=== PATIENT | male | born 1990 | race Hispanic/Latino ===

== ENCOUNTER → 2019-01-07 | Day surgery (SDC) | payer OTHER ==
[2019-01-07 17:14] LABS: #Basophils 0.1 thou/uL (0.0-0.2); #Eosinphils 0.4 thou/uL (0.0-0.7); #Lymphocytes 2.5 thou/uL (1.20-3.40); #Monocytes 0.7 thou/uL (0.11-0.59); #Neutrophils 4.8 thou/uL (1.40-6.50); %Basophils 0.8 % (0.0-1.0); %Eosinophils 4.2 % (0.0-10.0); %Lymphocytes 29.7 % (21.0-51.0); %Monocytes 8.1 % (0.0-10.0); %Neutrophils 57.3 % (42.0-75.0); Hemoglobin 14.3 g/dL (14.0-18.0); Mean Corpuscular HGB CONC 35.1 g/dL (32.0-36.0); Mean Corpuscular Volume 88.2 fL (78.0-98.0); Mean Platelet Volume 6.9 fL (7.4-10.4); Platelet Count 385 thou/uL (130-400); RBC Distribution Width 11.3 % (11.5-14.5); Red Blood Cell (RBC) Count 4.63 mill/uL (4.70-6.10); White Blood Cell (WBC) Count 8.5 thou/uL (4.8-10.8)
[2019-01-07 17:43] LABS: ALT (SGPT) 81 U/L (8-55); AST (SGOT) 38 U/L (5-34); Albumin 5.1 g/dL (3.5-5.0); Alkaline Phosphatase 72 U/L (40-110); Anion Gap 13 mmol/L (10-20); BUN (Urea Nitrogen) 12 mg/dL (8.9-20.6); Bilirubin, Total 1.4 mg/dL (0.2-1.2); Calc. Creatinine Clearance 0 mL/min (70-130); Carbon Dioxide 27 mmol/L (22-29); Chloride 103 mmol/L (98-107); Estimated GFR-MDRD Greater than 90; Globulin 3.1 g/dL (2.4-3.5); Glucose 96 mg/dL (70-105); Potassium 3.9 mmol/L (3.5-5.1); Protein, Total 8.2 g/dL (6.0-8.3); Sodium 139 mmol/L (136-145)
== END ==
LOC: ERS 16:28 → SDC/OP 19:26
PROVIDERS: ATTEND Orthopaedic Surgery Hand Surgery
DX: L02.511 Cutaneous abscess of right hand (principal); Z53.9 Procedure and treatment not carried out, unspecified reason
CPT/HCPCS: 80053; 85025; 99284

== ENCOUNTER 2019-01-16 05:41 | Day surgery (SDC) | payer OTHER ==
[2019-01-15 11:14] VITALS: BMI 25.2
[2019-01-16] MEDS ORDERED: Thrombin 5000 UNITS/5 ML VIAL ONE (06:44)
[2019-01-16] MEDS ORDERED: Bacitracin Zinc Ointment 30 gm TUBE ONE (06:44)
[2019-01-16] MEDS ORDERED: Sodium Chloride 0.9% 50 ML ONE (06:44)
[2019-01-16] MEDS ORDERED: Bupivacaine PF 0.5% 30 ML VIAL ONE (06:44)
[2019-01-16 07:51] LABS: #Basophils 0.1 thou/uL (0.0-0.2); #Eosinphils 0.5 thou/uL (0.0-0.7); #Lymphocytes 2.8 thou/uL (1.20-3.40); #Monocytes 0.5 thou/uL (0.11-0.59); #Neutrophils 4.4 thou/uL (1.40-6.50); %Basophils 0.8 % (0.0-1.0); %Eosinophils 5.9 % (0.0-10.0); %Lymphocytes 33.8 % (21.0-51.0); %Monocytes 6.1 % (0.0-10.0); %Neutrophils 53.4 % (42.0-75.0); Mean Corpuscular HGB CONC 33.7 g/dL (32.0-36.0); Mean Corpuscular Hemoglobin 30.3 pg (27.0-31.0); Mean Platelet Volume 6.8 fL (7.4-10.4); Platelet Count 390 thou/uL (130-400); RBC Distribution Width 11.5 % (11.5-14.5); Red Blood Cell (RBC) Count 4.61 mill/uL (4.70-6.10); White Blood Cell (WBC) Count 8.2 thou/uL (4.8-10.8)
[2019-01-16] MEDS ORDERED: Midazolam HCl 2 mg/2 ml Vial ONE (08:25)
[2019-01-16] MEDS ORDERED: Fentanyl 100 MCG/2 ML VIAL ONE (08:25)
--- NOTE | 2019-01-16 12:25 | OP ---
DATE OF PROCEDURE: 01/16/2019 PREOPERATIVE DIAGNOSES: 1. Foreign body abscess. 2. Foreign body splinter right thenar musculature. POSTOPERATIVE DIAGNOSES: 1. Foreign body abscess. 2. Foreign body splinter right thenar musculature. FINDINGS: A mucopurulent possible old sanguineous cavity with early infection around a 3 cm long splinter of wood. PROCEDURE PERFORMED: 1. Excision of foreign body and foreign body granuloma, 3 cm long piece of wood with surrounding cavity. 2. Incision and drainage of foreign body abscess, right thenar musculature of the right upper extremity. TOURNIQUET TIME: 10 minutes. ESTIMATED BLOOD LOSS: 10 mL. SPECIMEN SENT: 1. Splinter of wood. 2. Culture of abscess. INDICATIONS: The patient now with almost 2-1/2 weeks since he had a foreign body splinter of wood into his thenar area at work. He said he removed some of it, but felt that there was some inside and clinically, we could palpate the wood. He had progressive onset of fluctuance, so we felt he then had a granuloma with a hematoma, possible early abscess. DESCRIPTION OF PROCEDURE: After successful general endotracheal anesthesia by , STONE RIGGER, the patient had the limb prepped and draped. Tourniquet inflated to 250 mmHg pressure and we identified the site, side, and procedure being appropriate per history and physical, markings, and consent. We made a zigzag incision through the skin after given 10 mL of steffanie-incisional Marcaine without epinephrine. We carried this through skin immediately at the area where the foreign body was most palpable subcu. A reddish flores brown fluid escape, which was possibly mucopurulent or possibly resolving hematoma, but either way, we excised the entire cavity around this and the center of it was a splinter. The wood splinter was almost 3 cm long. It was more parallel to the subcutaneous tissue and barely penetrated the thenar musculatures. We exposed the thenar musculature. There was no infection here. We finished dissecting out the abscess cavity, irrigated with 2 L of normal saline with antibiotics bulb syringe pressure and released the tourniquet. We held pressure for 2 minutes with normal saline on the gauze and then we obtained hemostasis finally with electrocautery. We then closed the wound, leaving the central portion that was 1 cm almost as in fact where the granuloma and the foreign body was located open. We then packed this with gauze, placed bacitracin, Adaptic for the rest of the wound, and then a bulky dressing with Fadi wrap. He left the operating room without evidence of anesthetic or operative complication. Job ID: [id number]
== END 2019-01-16 11:30 | disposition home or self-care (01) ==
LOC: SDC 05:41
PROVIDERS: ATTEND Orthopaedic Surgery Hand Surgery
PROC: 0JCJ0ZZ Extirpation of Matter from Right Hand Subcutaneous Tissue and Fascia, Open Approach (ICD-10-PCS; principal; 2019-01-16)
PROC: 0J9J0ZZ Drainage of Right Hand Subcutaneous Tissue and Fascia, Open Approach (ICD-10-PCS; principal; 2019-01-16)
DX: L92.3 Foreign body granuloma of the skin and subcutaneous tissue (principal); L02.511 Cutaneous abscess of right hand
CPT/HCPCS: 85025; 87070; 87077; 87205; J0690; J2250; J3010; J3490; S0020